=== PATIENT | male | born 1940 | race Two or more races ===

== ENCOUNTER 2022-03-22 08:47 | Inpatient (IN) | payer OTHER ==
[~2022-03-22] VITALS: Ht 170.2 cm; Wt 72.6 kg
[2022-03-22] MEDS ORDERED: RAYOS5 MG (08:58)
[2022-03-22] MEDS ORDERED: GRALISE600 MG (08:59)
[2022-03-22] MEDS ORDERED: ARICEPT5 MG (08:59)
[2022-03-22] MEDS ORDERED: LIPITOR20 MG (08:59)
[2022-03-22] MEDS ORDERED: TAMS0.4C (08:59)
[2022-03-22] MEDS ORDERED: DITROPAN XL5 MG (09:00)
[2022-03-22] MEDS ORDERED: CHILDREN'S ASPI81 MG (09:00)
[2022-03-25] MEDS ORDERED: CLOPIDOGREL BIS75 MG PO (17:31)
[2022-03-25] MEDS ORDERED: ARICEPT5 MG PO (17:31)
[2022-03-25] MEDS ORDERED: LIPITOR20 MG PO (17:31)
[2022-03-25] MEDS ORDERED: QUETIAPINE FUMA25 MG PO (17:31)
[2022-03-25] MEDS ORDERED: ST. JOSEPH ASPI81 M2 PO (17:31)
[2022-03-25] MEDS ORDERED: POM (MEDICAMENTO EN PO (17:31)
[2022-03-25] MEDS ORDERED: AMLODIPINE BESYL5 MG PO (17:31)
[2022-03-25] MEDS ORDERED: TAMS0.4C PO (17:31)
== END 2022-03-25 18:30 | DRG 69 ==
LOC: ER 08:47 → MEDI 17:25
PROVIDERS: ADMIT Internal Medicine; ATTEND Internal Medicine
PROC: BW28ZZZ Computerized Tomography (CT Scan) of Head (ICD-10-PCS; principal; 2022-03-22)
PROC: B24BZZZ Ultrasonography of Heart with Aorta (ICD-10-PCS; 2022-03-22)
PROC: 4A12X4Z Monitoring of Cardiac Electrical Activity, External Approach (ICD-10-PCS; 2022-03-22)
PROC: BW38YZZ Magnetic Resonance Imaging (MRI) of Head using Other Contrast (ICD-10-PCS; 2022-03-23)
DX: G45.8 Other transient cerebral ischemic attacks and related syndromes (principal); I63.89 Other cerebral infarction; G81.91 Hemiplegia, unspecified affecting right dominant side; R29.2 Abnormal reflex; G30.8 Other Alzheimer's disease; F02.80 Dementia in other diseases classified elsewhere, unspecified severity, without behavioral disturbance, psychotic disturbance, mood disturbance, and anxiety; I10 Essential (primary) hypertension; Z20.822 Contact with and (suspected) exposure to COVID-19; N40.0 Benign prostatic hyperplasia without lower urinary tract symptoms
CPT/HCPCS: 70545